=== PATIENT | male | born 1995 | race Caucasian/White ===

== ENCOUNTER 2021-08-15 13:49 | Emergency (ER) | payer SELFPAY ==
[2021-08-15] MEDS ORDERED: IBUPROFEN 800 MG TAB PO ONE (16:55)
[2021-08-15] MEDS ORDERED: ACETAMINOPHEN 500 MG TAB PO ONE (16:55)
--- NOTE | 2021-08-15 16:57 | Emergency Department Report ---
ED General Adult HPI - General Chief complaint: Pain General Stated complaint: RT SIDE HURTING PUI?: No Time Seen by Provider: 08/15/21 16:46 Source: patient Mode of arrival: Ambulatory Limitations: No Limitations - History of Present Illness Initial comments: Chief complaint: Rib cage pain for 3 weeks HPI: This 26-year-old male with no significant past medical history who works as a commercial loan analyst. He has had a right lower rib cage pain at the anterior axillary line for 3 weeks. Hurts to cough. Hurts with straining. No known trauma. Pain at times radiates to the back. -: Gradual, week(s) (3 weeks) Location: chest Severity scale (0 -10): 8 Consistency: constant Improves with: none Worsens with: movement, other (Cough) Associated Symptoms: denies other symptoms Treatments Prior to Arrival: none - Related Data Previous Rx's Medication Instructions Recorded Last Taken Type Cyclobenzaprine [Flexeril] 10 mg PO TID PRN #15 08/15/21 Unknown Rx Ibuprofen [Motrin 400 MG tab] 400 mg PO TID 5 Days #15 tablet 08/15/21 Unknown Rx Allergies Allergy/AdvReac Type Severity Reaction Status Date / Time No Known Allergies Allergy Unverified 08/15/21 14:17 ED Review of Systems ROS: Stated complaint: RT SIDE HURTING Other details as noted in HPI Comment: All other systems reviewed and negative Constitutional: denies: chills, fever, malaise Respiratory: denies: cough, shortness of breath Cardiovascular: chest pain (Right lower chest pain) Gastrointestinal: denies: abdominal pain, nausea, vomiting Musculoskeletal: denies: back pain ED Past Medical Hx - Past Medical History Previous Medical History?: No - Surgical History Past Surgical History?: No - Family History Family history: no significant - Social History Smoking Status: Never Smoker Substance Use Type: None - Medications Home Medications: Home Medications Medication Instructions Recorded Confirmed Last Taken Type Cyclobenzaprine [Flexeril] 10 mg PO TID PRN #15 08/15/21 Unknown Rx Ibuprofen [Motrin 400 MG tab] 400 mg PO TID 5 Days #15 tablet 08/15/21 Unknown Rx ED Physical Exam - General Limitations: No Limitations General appearance: alert, in no apparent distress - Head Head exam: Present: atraumatic, normocephalic - Eye Eye exam: Present: normal appearance - ENT ENT exam: Present: mucous membranes moist - Neck Neck exam: Present: normal inspection, full ROM - Respiratory Respiratory exam: Present: normal lung sounds bilaterally, chest wall tenderness (Lower chest wall tenderness right anterior axillary line). Absent: respiratory distress, wheezes, rales, rhonchi - Cardiovascular Cardiovascular Exam: Present: regular rate, normal rhythm, normal heart sounds. Absent: systolic murmur, diastolic murmur, rubs, gallop - GI/Abdominal GI/Abdominal exam: Present: soft, normal bowel sounds. Absent: distended, tenderness, guarding, rebound - Rectal Rectal exam: Present: deferred - Extremities Exam Extremities exam: Present: normal inspection - Neurological Exam Neurological exam: Present: alert, oriented X3 - Psychiatric Psychiatric exam: Present: normal affect, normal mood - Skin Skin exam: Present: warm, dry, intact, normal color. Absent: rash ED Course Vital Signs 08/15/21 14:20 Temperature 98.5 F Pulse Rate 94 H Respiratory 20 Rate Blood Pressure 130/95 [Right] O2 Sat by Pulse 99 Oximetry ED Medical Decision Making - Radiology Data Radiology results: report reviewed Patient Name: CAITLYN KHAN Gender: Male Date of : 1995 Home Phone: Referring Provider: LETICIA OLIVEIRA Organization: [facility] Accession Number: [id number] Requested Date: August 15, 2021 16:54 Report Status: Final Requested Procedure: 1 Procedure Description: XR ribs UNI w PA Chest 3+V RT Modality: XR Findings Reporting MD: Ousmane Ornelas Dictation Time: August 15, 2021 16:29 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 FINDINGS: No pneumothorax. No mediastinal widening. No pleural effusion. Lung tello clear. No fracture seen. Mild thoracolumbar scoliosis. Signer Name: Ousmane Ornelas MD Signed: 08/15/2021 4:29 PM Workstation Name: [id number] - Medical Decision Making Chest wall strain no evidence of pneumothorax pneumonia or rib fracture Rib series on PA chest radiograph. PERC negative for PE. Prescribed ibuprofen Flexeril. Referred to internal medicine physician. Critical care attestation.: If time is entered above; I have spent that time in minutes in the direct care of this critically ill patient, excluding procedure time. ED Disposition Clinical Impression: Chest wall muscle strain Disposition: 01 HOME / SELF CARE / HOMELESS Is pt being admited?: No Does the pt Need Aspirin: No Condition: Stable Instructions: Muscle Strain, [id number] Prescriptions: Cyclobenzaprine [Flexeril] 10 mg PO TID PRN #15 PRN Reason: Muscle Spasm Ibuprofen [Motrin 400 MG tab] 400 mg PO TID 5 Days #15 tablet Referrals: TURNER FISHER MD [Staff Physician] - 3-5 Days
--- NOTE | 2021-08-15 17:33 | XRay Report ---
CHEST WITH RIGHT RIBS 4 VIEWS 1711 INDICATION: Right rib cage pain COMPARISON: None available. FINDINGS: No pneumothorax. No mediastinal widening. No pleural effusion. Lung tello clear. No fracture seen. Mild thoracolumbar scoliosis. Signer Name: Ousmane Ornelas MD Signed: 08/15/2021 5:29 PM Workstation Name: [id number]
[2021-08-15 18:17] VITALS: BP 125/86
== END 2021-08-15 18:14 | disposition home or self-care (01) ==
LOC: ED 13:49
DX: S29.011A Strain of muscle and tendon of front wall of thorax, initial encounter (principal); X58.XXXA Exposure to other specified factors, initial encounter; Y93.89 Activity, other specified; Y92.89 Other specified places as the place of occurrence of the external cause; Y99.8 Other external cause status
CPT/HCPCS: 99283